=== PATIENT | male | born 1960 | race Caucasian/White ===

== ENCOUNTER → 2016-07-14 | Outpatient (CLI) | payer BC ==
[~2016-07-14] MED LIST: AGGRENOX 25 MG1 EACH PO; ASPIRIN325 PO; ASPIRIN81 M2 PO; AUGMENTIN 875-1 EACH PO; AZITHROMYCIN 2250 MG PO; BYSTOLIC 5 MG5 M1 PO; BYSTOLIC2.5 MG; CEFTIN 250 MG250 MG PO; DIOVAN 80 MG TA80 M1 PO; EFFIENT10 MG PO; LANTUS100 UNIT/M SUBQ; LIPITOR80 MG PO; METFORMIN HCL500 MG PO; NAPROSYN500 MG PO; NIACIN 500 MG500 M1 PO; TESSALON PERLE100 MG PO; TRICOR145 MG PO; VICTOZA 3-0.6 MG/0.1 SQ; ZOLPIDEM TARTRA10 MG PO
== END ==
LOC: NUC 08:03
DX: I25.10 Atherosclerotic heart disease of native coronary artery without angina pectoris (principal)

== ENCOUNTER → 2017-01-30 | Outpatient (CLI) | payer BC ==
--- NOTE | ~2017-01-30 | 2DMMODE ---
[facility] [address] [place] [address] 2 D/M-MODE ECHOCARDIOGRAM Name: AMEYAVINCE TELLES Room #: REG [facility]#: [id number] Admission: 01/30/17 Attend Phys: Arnol Mckeon MD Discharge: Date of : 56 Date of Service: 01/30/17 1138 Report #: [id number] THIS REPORT FOR: //name// APPROVED REPORT Study performed: 01/30/2017 10:49:55 EXAM: Comprehensive 2D, Doppler, and color-flow Echocardiogram Patient Location: Out-Patient Room #: Echo lab Status: routine BSA: 2.17 HR: 73 bpm BP: 126/76 mmHg Other Information Study Quality: Adequate Indications Diabetes CAD Chest Pain Hypertension/HDD 2D Dimensions LVEF(%): 60.09 (>50%) IVSd: 11.47 (7-11mm) LVOT Diam: 20.32 (18-24mm) LVDd: 43.90 mm PWd: 10.83 (7-11mm) Ascending Ao: 30.98 (22-36mm) LVDs: 29.94 (25-40mm) Aortic Root: 29.68 mm IVC: 11.00 mm White's LVEF: 60.09 % Volumes Left Atrial Volume (Systole) Single Plane 4CH: 42.31 mL Single Plane 2CH: 53.52 mL LA ESV Index: 24.00 mL/m2 Aortic Valve AoV Peak Sal.: 1.31 m/s AO Peak Gr.: 6.84 mmHg LVOT Max P.13 mmHg LVOT Max V: 1.02 m/s MICHELLE Vmax: 2.52 cm2 Mitral Valve [facility] [address] [place] [address] 2 D/M-MODE ECHOCARDIOGRAM Name: VINCE HOU Room #: REG [facility]#: [id number] Admission: 01/30/17 Attend Phys: Arnol Mckeon MD Discharge: Date of : 56 Date of Service: 01/30/17 1138 Report #: [id number] E/A Ratio: 1.5 MV Decel. Time: 134.12 ms MV E Max Sal.: 1.01 m/s MV A Sal.: 0.67 m/s MV PHT: 38.90 ms IVRT: 96.89 ms Pulmonary Valve PV Peak Sal.: 0.97 m/s PV Peak Gr.: 3.78 mmHg Pulmonary Vein P Vein S: 0.49 m/s P Vein A: 0.21 m/s P Vein D: 0.37 m/s P Vein A Dur.: 101.5 msec P Vein S/D Ratio: 1.32 Left Ventricle The left ventricle is normal size. There is hypokinesis in the inferior wall. There is normal left ventricular wall thickness. The left ventricular systolic function is normal. The left ventricular ejection fraction is within the normal range. LVEF is 55-60%. Grade II - pseudonormal filling dynamics. Right Ventricle The right ventricle is normal size. The right ventricular systolic function is normal. Atria The left atrium size is normal. The right atrium size is normal. Aortic Valve The aortic valve is normal in structure. No aortic regurgitation is present. There is no aortic valvular stenosis. Mitral Valve The mitral valve is normal in structure. Trace mitral regurgitation. No evidence of mitral valve stenosis. Tricuspid Valve The tricuspid valve is normal in structure. There is no tricuspid valve regurgitation noted. Pulmonic Valve The pulmonary valve is normal in structure. There is no pulmonic valvular regurgitation. [address] [address] 2 D/M-MODE ECHOCARDIOGRAM Name: VINCE HOU Room #: REG CL [facility]#: [id number] Admission: 01/30/17 Attend Phys: Arnol Mckeon MD Discharge: Date of : 56 Date of Service: 01/30/17 1138 Report #: [id number] Great Vessels The aortic root is normal in size. IVC is normal in size and collapses >50% with inspiration. Pericardium There is no pericardial effusion. <Conclusion> The left ventricle is normal size. The left ventricular systolic function is normal. Grade II - pseudonormal filling dynamics. The right ventricle is normal size. The left atrium size is normal. There is no aortic valvular stenosis. Trace mitral regurgitation. <ELECTRONICALLY SIGNED> By: Arnol Mckeon MD 01/30/17 1138 1138 1138 Arnol Mckeon MD /INF
== END ==
LOC: NUC 01-26 10:29 → CV 01-26 10:30 → NUC 01-26 12:00 → CV 09:56
DX: I25.10 Atherosclerotic heart disease of native coronary artery without angina pectoris (principal); I10 Essential (primary) hypertension; E11.9 Type 2 diabetes mellitus without complications

== ENCOUNTER 2017-05-23 21:04 | Inpatient (IN) | payer BC ==
[~2017-05-23] VITALS: Ht 185.4 cm; Wt 94.6 kg
--- NOTE | ~2017-05-23 | CATHLAB ---
[facility] [address] [place] [address] INVASIVE PROCEDURE REPORT Name: VINCE HOU Room #: 213-P DIS IN M.R.#: [id number] Admission: 05/24/17 Attend Phys: Alicia Gunderson Discharge: 05/24/17 Date of : 56 Date of Service: 05/24/17 1643 Report #: [id number] THIS REPORT FOR: //name// APPROVED REPORT Patient Details Patient Status: In-Patient Room #: The patient is a 57 year-old male Event Personnel Arnol Mckeon Center Receptionist, Crispin eMlendez RN, Jefry Recinos Monitor, Milly Arriaza RTR, YI Scrub, Bri De León RN Stallion Manager Procedures Performed Left Heart Cath Coronaries, Bypass Grafts [id number] [facility] Ind[facility] Dyspnea, Unstable angina , Chest pain Risk Factors Hypercholesterolemia, Coronary Artery DiseaseHypertension, Diabetes Previous Procedures/Diagnoses Previous CABGPrevious PCI Procedure Narrative The Right Groin^ was infiltrated with 1% Lidocaine subcutaneous anesthesia. A PINNACLE 4FR Sheath #[id number] sheath was inserted into the RFA^. Coronary angiography was performed using coronary diagnostic catheters. The right coronary system was accessed and visualized with a JR4 catheter. The left coronary system was accessed and visualized with a JL4 catheter. The left ventricle was accessed and visualized with a PIGTAIL catheter. Left ventricular/Aortic Valve gradient assessed via catheter pullback. Left ventriculogram was performed in 30 degree projection. Hemostasis was obtained with manual pressure following sheath removal without any complications. The patient tolerated the procedure well and there were no complications associated with the procedure. There was no hematoma. Intraoperative Conscious Sedation Sedation start time: 9.05 Case end Time: 9.21 [facility] [address] [place] [address] INVASIVE PROCEDURE REPORT Name: AMEYAVINCE WOODSON Room #: 213-P [facility] IN M..#: [id number] Admission: 05/24/17 Attend Phys: Alicia Gunderson Discharge: 05/24/17 Date of : 56 Date of Service: 05/24/17 1643 Report #: [id number] Fentanyl 25.0 mcg Versed 0.5 mg Fluoro Time: 4.14 minutes Dose: 637 mGy Contrast Type and Amount: Omnipaque 100 ml Coronary Angiography The patient's coronary anatomy is co- dominant. [place] Artery Percent Stenosis Left Main: % Prox LAD: 70 % Mid/Distal LAD: % Circumflex: % RCA: 100 % Ramus: % Diagnostic Cath LAD Patent WOODWARD graft with an end-to-side anastomosis to the mid LAD. Diagonal 1 Patent vein graft with an end-to-side anastomosis to the first diagonal artery. Circumflex There is a stent in the proximal segment of the left circumflex artery, with minimal restenosis. OM3 There is a patent vein graft with an end-to-side anastomosis to OM 3. R PDA There is a patent vein graft with an end-to-side anastomosis to the PDA Left Ventriculography The left ventricle is normal in size with decreaseddecreased contractility. The left ventricular ejection fraction is estimated to be 45%. Left ventricular wall motion abnormalities are present. HK of inf.wall. Hemodynamics The aortic pressure is 139/71 mmHg with a mean of 84 mmHg. The left ventricular pressure is 130/2 mmHg with a mean of mmHg. The left ventricular end diastolic pressure is 19 mmHg. There was no gradient across the aortic valve upon pullback. Pullback from the left ventricle to the aorta revealed no gradient across the aortic valve. Conclusion 1. Patent grafts to LAD, first diagonal artery, third obtuse marginal artery and PDA. 2. Patent stent in the proximal segment of the left circumflex artery. [facility] [address] [place] [address] INVASIVE PROCEDURE REPORT Name: VINCE HOU Room #: 213-P [facility] IN M.R.#: [id number] Admission: 05/24/17 Attend Phys: Alicia Gunderson Discharge: 05/24/17 Date of : 56 Date of Service: 05/24/17 1643 Report #: [id number] 3. Mild segmental LV dysfunction. 4. Recommend medical therapy. <ELECTRONICALLY SIGNED> By: Arnol Mckeon MD 05/24/171642 42 42 Arnol Mckeon MD /INF
--- NOTE | ~2017-05-23 | EKG ---
[address] [address] ELECTROCARDIOGRAM REPORT Name: VINCE HOU Room #: 213-P ADM IN M.R.#: [id number] Admission: 05/24/17 Attend Phys: Bartolome Gonzalez MD Discharge: Date of : 56 Report #: [id number] THIS REPORT FOR: //name// [facility] Test Date: 2017-05-24 Test Time: 06:07:42 Pat Name: VINCE HOU Department: Room: 213 P Gender: M Home Care Aide: SHELBY : 1960 Requested By: Yajaira Barrios Order Number: [id number] MD: Fritz Avina Measurements Intervals [place] Rate: 66 P: 37 [place]: 162 QRS: 40 QRSD: 98 T: 187 QT: 406 QTc: 426 Interpretive Statements Sinus rhythm Probable left atrial enlargement Inferoposterior infarct, age indeterminate Abnormal lateral Q waves Compared to ECG 12/25/2015 20:26:29 Electronically Signed On 05-24-2017 8:14:49 CLIENT SERVICES ACCOUNT MANAGER by Fritz Avina [email or web address] <ELECTRONICALLY SIGNED> By: Fritz Avina MD 05/24/17813 6 6 Fritz Avina MD /MALKA
--- NOTE | ~2017-05-23 | EKG ---
[address] [facility] [place] [address] ELECTROCARDIOGRAM REPORT Name: VINCE HOU Room #: 213-P ADM IN M.R.#: [id number] Admission: 05/24/17 Attend Phys: Bartolome Gonzalez MD Discharge: Date of : 56 Report #: [id number] THIS REPORT FOR: //name// [facility] ED Test Date: 2017-05-23 Test Time: 21:42:57 Pat Name: VINCE HOU Department: Room: 213 Gender: M Master Esthetician: LAYLA : 1960 Requested By: Gómez Franco Order Number: [id number] MD: Fritz Avina Measurements Intervals [place] Rate: 68 P: 34 CT: 162 QRS: 32 QRSD: 100 T: 192 QT: 383 QTc: 408 Interpretive Statements Sinus rhythm Probable left atrial enlargement Inferoposterior infarct, age indeterminate Lateral leads are also involved Compared to ECG 12/25/2015 20:26:29 No significant changes Electronically Signed On 05-24-2017 8:12:26 MINT WAFER DEPOSITOR by Fritz Avina [email or web address] <ELECTRONICALLY SIGNED> By: Fritz Avina MD 05/24/17811 41 41 Fritz Avina MD /MALKA
[2017-05-23 21:06] VITALS: BP 143/85
[2017-05-23 23:16] LABS: ABSOLUTE NEUTROPHILS 4.5 thou/uL (1.4-8.2); BASOPHILS 0.5 % (0.0-2.0); EOSINOPHILS 1.3 % (0.0-3.0); HEMATOCRIT 48.7 % (42.0-52.0); HEMOGLOBIN 16.3 gm/dL (14.0-18.0); LYMPHOCYTES 27.9 % (24.0-44.0); MCHC 33.4 g/dL (28.0-37.0); MCV 86.7 fL (80.0-100.0); MONOCYTES 9.3 % (1.0-8.0); PLATELET COUNT 285 thou/uL (150-400); RBC 5.61 mil/uL (4.50-6.00); RDW 13.7 % (10.5-14.5); WBC 7.4 thou/uL (4.0-11.0)
[2017-05-23 23:21] LABS: ANION GAP 10 mmol/L (7-16); BUN 22 mg/dL (7-18); CALCIUM 9.5 mg/dL (8.5-10.1); CHLORIDE 99 mmol/L (98-107); CO2 28 mmol/L (21-32); CREATININE 0.9 mg/dL (0.7-1.3); GLUCOSE 262 mg/dL (74-106); POTASSIUM 3.9 mmol/L (3.5-5.1); SODIUM 137 mmol/L (136-145)
[2017-05-23 23:30] LABS: TROPONIN-I < 0.04 ng/mL (<0.06)
[2017-05-23] MEDS ORDERED: AGGRENOX 25 MG1 EACH PO (23:30)
[2017-05-23] MEDS ORDERED: FISH OIL 1,001000 M2 PO (23:30)
[2017-05-23] MEDS ORDERED: FOLGARD TABLET1 EAC1 PO (23:31)
[2017-05-24] VITALS (12 sets, daily range): BP systolic 120–136; BP diastolic 67–91
[2017-05-24 05:23] LABS: ALBUMIN 3.3 g/dL (3.4-5.0); CALCIUM 8.3 mg/dL (8.5-10.1); CREATININE 0.9 mg/dL (0.7-1.3); PHOSPHORUS 3.2 mg/dL (2.5-4.9)
[2017-05-24 08:15] LABS: CHOLESTEROL 119 mg/dL (<200); HDL CHOLESTEROL 32 mg/dL (>40); LDL CHOLESTEROL 74 mg/dL (<100); TC:HDL 3.7 Ratio (Not establshd); TRIGLYCERIDE 68 mg/dL (<150); VLDL 14 mg/dL (<40)
[2017-05-24] MEDS ORDERED: METFORMIN HCL500 MG PO (12:18)
[2017-05-25 05:12] LABS: GLYCOHEMOGLOBIN (HGB A1C) 11.4 % (4.8-5.6)
== END 2017-05-24 13:10 | disposition home or self-care (01) | DRG 287 ==
LOC: ER 21:04 → EROBS 05-24 00:02 → 2N 05-24 00:02 → ENTRNSPT 05-24 13:04 → EDTRNSPTSTS 05-24 13:05 → 2N 05-24 13:10
PROVIDERS: Internal Medicine; Nurse Practitioner Family; Physician Assistant
PROC: B21FYZZ Fluoroscopy of Other Bypass Graft using Other Contrast (ICD-10-PCS; principal; 2017-05-24)
PROC: 4A023N7 Measurement of Cardiac Sampling and Pressure, Left Heart, Percutaneous Approach (ICD-10-PCS; principal; 2017-05-24)
PROC: B211YZZ Fluoroscopy of Multiple Coronary Arteries using Other Contrast (ICD-10-PCS; principal; 2017-05-24)
DX: I25.10 Atherosclerotic heart disease of native coronary artery without angina pectoris (principal); I10 Essential (primary) hypertension; E78.5 Hyperlipidemia, unspecified; E11.65 Type 2 diabetes mellitus with hyperglycemia; I48.0 Paroxysmal atrial fibrillation; Z60.2 Problems related to living alone; Z79.899 Other long term (current) drug therapy; Z79.82 Long term (current) use of aspirin; Z90.49 Acquired absence of other specified parts of digestive tract; I25.2 Old myocardial infarction; Z95.1 Presence of aortocoronary bypass graft; Z86.73 Personal history of transient ischemic attack (TIA), and cerebral infarction without residual deficits; Z82.49 Family history of ischemic heart disease and other diseases of the circulatory system
CPT/HCPCS: 10081

== ENCOUNTER → 2017-10-23 | Outpatient (CLI) | payer BC ==
[~2017-10-23] MED LIST changes: +FISH OIL 1,001000 M2 PO; +FOLGARD TABLET1 EAC1 PO
--- NOTE | ~2017-10-23 | 2DMMODE ---
[facility] [place] [address] 2 D/M-MODE ECHOCARDIOGRAM Name: AMEYAVINCE Room #: REG [facility]#: [id number] Admission: 10/23/17 Attend Phys: Arnol Mckeon MD Discharge: Date of : 56 Date of Service: 10/23/17 0959 Report #: [id number] THIS REPORT FOR: //name// APPROVED REPORT Study performed: 10/23/2017 09:16:45 EXAM: Comprehensive 2D, Doppler, and color-flow Echocardiogram Patient Location: Out-Patient Status: routine BSA: 2.17 HR: 77 bpm BP: 140/83 mmHg Rhythm: NSR Indications Chest pain. Hx: CABG. stent, DM, HTN, HLP 2D Dimensions RVDd: 43.26 mm LVEF(%): 56.24 (>50%) IVSd: 11.83 (7-11mm) LVOT Diam: 21.55 (18-24mm) LVDd: 44.38 mm PWd: 11.29 (7-11mm) LVDs: 31.41 (25-40mm) Aortic Root: 34.54 mm White's LVEF: 56.24 % Volumes Left Atrial Volume (Systole) Single Plane 4CH: 51.91 mL Single Plane 2CH: 65.16 mL LA ESV Index: 29.00 mL/m2 Aortic Valve AoV Peak Sal.: 1.72 m/s AO Peak Gr.: 11.81 mmHg LVOT Max P.23 mmHg LVOT Max V: 1.52 m/s MICHELLE Vmax: 3.22 cm2 Mitral Valve E/A Ratio: 1.2 MV Decel. Time: 156.34 ms MV E Max Sal.: 1.17 m/s MV A Sal.: 0.97 m/s MV PHT: 45.34 ms [facility] [place] [address] 2 D/M-MODE ECHOCARDIOGRAM Name: AMEYAVINCE TELLES Room #: REG [facility]#: [id number] Admission: 10/23/17 Attend Phys: Arnol Mckeon MD Discharge: Date of : 56 Date of Service: 10/23/17 0959 Report #: [id number] IVRT: 65.74 ms Pulmonary Valve PV Peak Sal.: 1.44 m/s PV Peak Gr.: 8.29 mmHg Pulmonary Vein P Vein S: 0.65 m/s P Vein D: 0.67 m/s P Vein S/D Ratio: 0.97 Tricuspid Valve TR Peak Sal.: 2.59 m/s RAP Estimate: 5.00 mmHg TR Peak Gr.: 26.86 mmHg PA Pressure: 32.00 mmHg Left Ventricle The left ventricle is normal size. There is normal LV segmental wall motion. Mild concentric left ventricular hypertrophy. Left ventricular systolic function is normal. LVEF is 60-65%. Moderate diastolic dysfunction is present (pseudonormal filling). Right Ventricle The right ventricle is normal size. The right ventricular systolic function is normal. Atria The left atrium size is normal. The right atrium size is normal. Aortic Valve The aortic valve is normal in structure. Trace aortic regurgitation. There is no aortic valvular stenosis. Mitral Valve The mitral valve is normal in structure. Mild mitral regurgitation. No evidence of mitral valve stenosis. Tricuspid Valve The tricuspid valve is normal in structure. Trace tricuspid regurgitation. Estimated PAP is 30-35mmHg. Pulmonic Valve Pulmonic valve is not well visualized. Great Vessels The aortic root is normal in size. Ascending aorta is not well [facility] [address] [place] [address] 2 D/M-MODE ECHOCARDIOGRAM Name: VINCE HOU Room #: REG CL [facility]#: [id number] Admission: 10/23/17 Attend Phys: Arnol Mckeon MD Discharge: Date of : 56 Date of Service: 10/23/17 0959 Report #: [id number] visualized. IVC is normal in size and collapses >50% with inspiration. Pericardium There is no pericardial effusion. <Conclusion> The left ventricle is normal size. Mild concentric left ventricular hypertrophy. Left ventricular systolic function is normal. Moderate diastolic dysfunction is present (pseudonormal filling). The right ventricle is normal size. The left atrium size is normal. Trace aortic regurgitation. Mild mitral regurgitation. Trace tricuspid regurgitation. Estimated PAP is 30-35mmHg. <ELECTRONICALLY SIGNED> By: Arnol Mckeon MD 10/23/17958 8 8 Arnol Mckeon MD /INF
== END ==
LOC: CV 07:11
DX: I34.0 Nonrheumatic mitral (valve) insufficiency (principal); E11.9 Type 2 diabetes mellitus without complications; I11.9 Hypertensive heart disease without heart failure; E78.5 Hyperlipidemia, unspecified; Z95.1 Presence of aortocoronary bypass graft

== ENCOUNTER → 2018-05-01 | Outpatient (CLI) | payer OTHER | LOC: NUC 04-30 07:06 | DX: M62.20 Nontraumatic ischemic infarction of muscle, unspecified site (principal); I10 Essential (primary) hypertension ==

== ENCOUNTER 2018-10-01 01:05 | Emergency (ER) | payer OTHER ==
[~2018-10-01] VITALS: Ht 188 cm; Wt 90.7 kg
[2018-10-01 01:07] VITALS: BP 135/87
[2018-10-02] MEDS ORDERED: KEFLEX500 M1 PO (02:34)
[2018-10-02] MEDS ORDERED: BACTRIM DS TAB1 EACH PO (02:34)
[2018-10-02] MEDS ORDERED: NORCO 5-325 TA1 EAC1 PO (02:36)
== END 2018-10-01 02:05 | disposition home or self-care (01) ==
LOC: ER 01:05
DX: L03.012 Cellulitis of left finger (principal); I25.2 Old myocardial infarction; I10 Essential (primary) hypertension; E78.5 Hyperlipidemia, unspecified; E11.9 Type 2 diabetes mellitus without complications; Z95.5 Presence of coronary angioplasty implant and graft; Z79.4 Long term (current) use of insulin; Z79.899 Other long term (current) drug therapy

== ENCOUNTER 2018-10-01 22:39 | Emergency (ER) | payer OTHER ==
[~2018-10-01] VITALS: Ht 188 cm; Wt 90.7 kg
[2018-10-02] MEDS ORDERED: BACTRIM DS TAB1 EACH PO (02:34)
[2018-10-02] MEDS ORDERED: KEFLEX500 M1 PO (02:34)
[2018-10-02] MEDS ORDERED: NORCO 5-325 TA1 EAC1 PO (02:36)
[2018-10-02 02:50] VITALS: BP 127/65
== END 2018-10-02 02:51 | disposition home or self-care (01) ==
LOC: ER 22:39
DX: L03.012 Cellulitis of left finger (principal); I25.2 Old myocardial infarction; I10 Essential (primary) hypertension; E78.5 Hyperlipidemia, unspecified; E11.9 Type 2 diabetes mellitus without complications; Z90.49 Acquired absence of other specified parts of digestive tract; Z79.4 Long term (current) use of insulin; Z79.899 Other long term (current) drug therapy

== ENCOUNTER 2020-12-16 17:21 | Emergency (ER) | payer OTHER ==
[~2020-12-16] VITALS: Ht 188 cm; Wt 86.2 kg
[~2020-12-16 17:21] MED LIST changes: +BACTRIM DS TAB1 EACH PO; +KEFLEX500 M1 PO; +NORCO 5-325 TA1 EAC1 PO
[2020-12-16 18:00] LABS: ABSOLUTE NEUTROPHILS 4.5 thou/uL (1.4-8.2); BASOPHILS 0.6 % (0.0-2.0); EOSINOPHILS 0.6 % (0.0-3.0); HEMATOCRIT 41.6 % (42.0-52.0); HEMOGLOBIN 13.4 gm/dL (14.0-18.0); LYMPHOCYTES 26.1 % (24.0-44.0); MCH 27.6 pg (26.0-34.0); MCHC 32.3 g/dL (28.0-37.0); MCV 85.4 fL (80.0-100.0); MONOCYTES 8.1 % (1.0-8.0); PLATELET COUNT 298 thou/uL (150-400); POLYS 64.6 % (36.0-66.0); RBC 4.86 mil/uL (4.50-6.00); RDW 14.5 % (10.5-14.5)
[2020-12-16 18:08] LABS: CALCIUM 9.2 mg/dL (8.5-10.1); CREATININE 1.2 mg/dL (0.7-1.3); POTASSIUM 4.1 mmol/L (3.5-5.1)
[2020-12-16 18:17] LABS: ALBUMIN 3.5 g/dL (3.4-5.0); TOTAL BILIRUBIN 0.5 mg/dL (0.2-1.0); TOTAL PROTEIN 6.6 g/dL (6.4-8.2)
[2020-12-16 21:14] VITALS: BP 110/51
--- NOTE | 2020-12-17 06:50 | EKG ---
[place] [address] [address] [facility] [place] [address] ELECTROCARDIOGRAM REPORT Name: VINCE HOU [facility] [id number] Admission: 12/16/20 Attend Phys: Discharge: 12/16/20 Date of : 56 Report #: [id number] [facility] ED Test Date: 2020-12-16 Test Time: 17:27:17 Pat Name: VINCE HOU Department: Room: Gender: M Hospital Ward Clerk: MARCELLUS : 1960 Requested By: José Antonio Oro Order Number: [id number] MD: Van Curiel Measurements Intervals [place] Rate: 81 P: [place]: QRS: 33 QRSD: 88 T: 191 QT: 341 QTc: 396 Interpretive Statements Atrial fibrillation Inferoposterior infarct, age indeterminate Abnrm T, consider ischemia, anterolateral lds Baseline wander in lead(s) V1,V4 Compared to ECG 05/24/2017 06:07:42 Possible ischemia now present Sinus rhythm no longer present Q waves no longer present Myocardial infarct finding still present Electronically Signed On 12-17-2020 6:50:10 CDT by Van Curiel [email or web address] <ELECTRONICALLY SIGNED> By: Van Curiel MD, FAC 12/17/20 0650 1727 1727 Van Curiel MD, [facility] /EPI
== END 2020-12-16 21:29 | disposition home or self-care (01) ==
LOC: ER 17:21
PROVIDERS: Student in an Organized Health Care Education/Training Program
DX: I48.91 Unspecified atrial fibrillation (principal); R42 Dizziness and giddiness; I10 Essential (primary) hypertension; E78.5 Hyperlipidemia, unspecified; E11.9 Type 2 diabetes mellitus without complications; Z90.49 Acquired absence of other specified parts of digestive tract; Z79.2 Long term (current) use of antibiotics; Z79.82 Long term (current) use of aspirin; Z79.4 Long term (current) use of insulin; Z79.899 Other long term (current) drug therapy

== ENCOUNTER 2020-12-24 21:27 | Emergency (ER) | payer OTHER ==
[~2020-12-24] VITALS: Ht 188 cm; Wt 86.2 kg
[2020-12-24] MEDS ORDERED: XARELTO20 MG PO (21:38)
[2020-12-24 22:13] LABS: ABSOLUTE NEUTROPHILS 5.5 thou/uL (1.4-8.2); BASOPHILS 0.5 % (0.0-2.0); EOSINOPHILS 0.8 % (0.0-3.0); HEMATOCRIT 40.2 % (42.0-52.0); HEMOGLOBIN 13.3 gm/dL (14.0-18.0); LYMPHOCYTES 25.7 % (24.0-44.0); MCH 28.1 pg (26.0-34.0); MCV 85.3 fL (80.0-100.0); MONOCYTES 6.7 % (1.0-8.0); PLATELET COUNT 300 thou/uL (150-400); POLYS 66.3 % (36.0-66.0); RBC 4.71 mil/uL (4.50-6.00); RDW 14.7 % (10.5-14.5); WBC 8.4 thou/uL (4.0-11.0)
[2020-12-24 22:39] LABS: CALCIUM 9.6 mg/dL (8.5-10.1); CREATININE 1.2 mg/dL (0.7-1.3); POTASSIUM 4.2 mmol/L (3.5-5.1)
[2020-12-24 22:49] LABS: ALBUMIN 3.9 g/dL (3.4-5.0); TOTAL BILIRUBIN 0.4 mg/dL (0.2-1.0); TOTAL PROTEIN 7.3 g/dL (6.4-8.2)
[2020-12-25 01:10] VITALS: BP 132/68
--- NOTE | 2020-12-25 10:22 | EKG ---
[address] [address] ELECTROCARDIOGRAM REPORT Name: VINCE HOU Room #: DEP [facility]#: [id number] Admission: 12/24/20 Attend Phys: Discharge: 12/25/20 Date of : 56 Report #: [id number] [facility] ED Test Date: 2020-12-24 Test Time: 21:30:42 Pat Name: VINCE HOU Department: Room: Gender: M Farrowing Worker: ROBERT : 1960 Requested By: Petra Recinos Order Number: [id number] MD: Van Curiel Measurements Intervals [place] Rate: 75 P: 47 [place]: 159 QRS: 50 QRSD: 98 T: 210 QT: 362 QTc: 405 Interpretive Statements Sinus rhythm Probable left atrial enlargement Inferoposterior infarct, age indeterminate Abnrm T, consider ischemia, anterolateral lds Compared to ECG 12/16/2020 17:27:17 Atrial fibrillation no longer present Myocardial infarct finding still present Possible ischemia still present Electronically Signed On 12-25-2020 10:22:40 CDT by Van Curiel [email or web address] <ELECTRONICALLY SIGNED> By: Van Curiel MD, [facility] 12/25/20 1022 29 29 Van Curiel MD, [facility] /EPI
== END 2020-12-25 01:11 | disposition home or self-care (01) ==
LOC: ER 21:27
PROVIDERS: Physician Assistant
DX: R07.89 Other chest pain (principal); I48.91 Unspecified atrial fibrillation; I10 Essential (primary) hypertension; E78.5 Hyperlipidemia, unspecified; E11.9 Type 2 diabetes mellitus without complications; Z79.4 Long term (current) use of insulin; Z79.891 Long term (current) use of opiate analgesic; Z79.82 Long term (current) use of aspirin; Z79.1 Long term (current) use of non-steroidal anti-inflammatories (NSAID); Z79.899 Other long term (current) drug therapy

== ENCOUNTER → 2021-01-01 | Outpatient (CLI) | payer OTHER ==
[~2021-01-01] MED LIST changes: +XARELTO20 MG PO
== END ==
LOC: SJCVCIMAG 08:05
PROVIDERS: ATTEND Internal Medicine Cardiovascular Disease
DX: I08.0 Rheumatic disorders of both mitral and aortic valves (principal); I11.9 Hypertensive heart disease without heart failure; E78.5 Hyperlipidemia, unspecified; E11.9 Type 2 diabetes mellitus without complications; I25.10 Atherosclerotic heart disease of native coronary artery without angina pectoris; I49.3 Ventricular premature depolarization; Z95.1 Presence of aortocoronary bypass graft; Z86.73 Personal history of transient ischemic attack (TIA), and cerebral infarction without residual deficits; K21.9 Gastro-esophageal reflux disease without esophagitis; Z79.82 Long term (current) use of aspirin; Z79.899 Other long term (current) drug therapy

== ENCOUNTER → 2021-01-07 | Outpatient (CLI) | payer OTHER ==
[~2021-01-07] VITALS: Ht 193 cm; Wt 86.2 kg
[~2021-01-07] MED LIST changes: +DELTA D310 MCG PO
[2021-01-07 10:10] VITALS: BP 131/79
--- NOTE | 2021-01-07 11:50 | EKG ---
[place] [address] [facility] [place] [address] ELECTROCARDIOGRAM REPORT Name: VINCE HOU [facility]: [facility] [id number] Admission: 01/07/21 Attend Phys: Arnol Mckeon MD Discharge: Date of : 56 Report #: [id number] [facility] Test Date: 2021-01-07 Test Time: 10:15:57 Pat Name: VINCE HOU Department: Room: Gender: M Retort Setter: SHIVANI : 1960 Requested By: Arnol Mckeon Order Number: [id number] MD: Van Curiel Measurements Intervals [place] Rate: 75 P: 38 [place]: 175 QRS: 43 QRSD: 93 T: 194 QT: 371 QTc: 415 Interpretive Statements Sinus rhythm Probable left atrial enlargement Abnormal R-wave progression, early transition Inferior infarct, age indeterminate Lateral leads are also involved Compared to ECG 12/24/2020 21:30:42 Possible ischemia no longer present Myocardial infarct finding still present Electronically Signed On 01-07-2021 11:50:00 CDT by Van Curiel [email or web address] <ELECTRONICALLY SIGNED> By: Van Curiel MD, [facility] 01/07/21 1150 1015 1015 Van Curiel MD, [facility] /EPI
--- NOTE | 2021-01-07 13:45 | CATHLAB ---
[facility] [place] [address] INVASIVE PROCEDURE REPORT Name: VINCE HOU Room #: REG [facility]#: [id number] Admission: 01/07/21 Attend Phys: Arnol Mckeon MD Discharge: Date of : 56 Report #: [id number] THIS REPORT FOR: cc: Prosper Guzmán MD, Rene P. MD Park, Jin S. MD ~ APPROVED REPORT Study performed: 01/07/2021 09:55:48 Patient Details Patient Status: Out-Patient Room #: The patient is a 60 year-old male Event Personnel Arnol Mckeon Commissioner Of Officials, Christa Mitchell RTVishnu Monitor, Karen Marinelli Jones, Jessica RN topographic computator Performed Art Access - R femoral artery* Left Heart Cath Coronaries, Bypass Grafts [id number] [facility] Hemostasis with Manual pressure 94747 Initial Mod Sed Same Phys/QHP Gr5y 638066 Mod Sed Same Phys/QHP Ea 391171 Indication Dyspnea, Positive stress test, Chest pain Risk Factors Hypercholesterolemia, Coronary Artery DiseaseHypertension, Diabetes Previous Procedures/Diagnoses Previous CABGPrevious PCI Procedure Narrative The Right Groin^ was infiltrated with 1% Lidocaine subcutaneous anesthesia. A PINNACLE 4FR Sheath #[id number] sheath was inserted into the RFA^. Coronary angiography was performed using coronary diagnostic catheters. The right coronary system was accessed and visualized with a JR4 catheter. The left coronary system was accessed and visualized with a JL4 catheter. The left ventricle was accessed and visualized with a JR4 catheter. Hemostasis was obtained with manual pressure following sheath removal without any complications. The patient tolerated the procedure well and there were no complications associated with the procedure. There was no [facility] [address] [place] [address] INVASIVE PROCEDURE REPORT Name: VINCE HOU Room #: REG [facility]#: [id number] Admission: 01/07/21 Attend Phys: Arnol Mckeon MD Discharge: Date of : 56 Report #: [id number] hematoma. Intraoperative Conscious Sedation Sedation start time: 11:18 Case end Time: 11:53 Fentanyl 50 mcg Versed 1 mg Fluoro Time: 6.60 minutes Dose: DAP 8726.80 cGycm2 1152 mGy Contrast Type and Amount: Visipaque 85 ml Coronary Angiography The patient's coronary anatomy is co- dominant. Diagnostic Cath Left Main The left main artery is a patent vessel, with no flow-limiting lesions. LAD There is a severe occlusion in the proximal LAD. There is a patent WOODWARD graft with an end-to-side anastomosis to the mid LAD. Diagonal 1 There is a patent SVG with an end-to-side anastomosis to the first diagonal artery. Circumflex The left circumflex artery is a codominant vessel, has a patent stent in the proximal segment. There is mild to moderate disease in the mid and distal segments. OM1 There is a small caliber vessel, patent with no flow-limiting lesions. OM2 This is a small to moderate-sized caliber vessel, patent with no flow-limiting lesions. OM3 There is a severe occlusion in the [place] proximal segment. There is a patent graft with an end-to-side anastomosis to OM 3. Right Coronary The RCA is totally occluded in the proximal segment. R PDA There is a patent SVG with an end-to-side anastomosis to the PDA. Left Ventriculography Left Ventriculography was not performed. Ejection Fraction was 55-60% based off patient's Nuclear Cardiac Stress Test. An LVEDP was measured and there is no gradient across the outflow tract. Hemodynamics The aortic pressure is 133/69 mmHg with a mean of 96 mmHg. The left ventricular pressure is 153/12 mmHg with a mean of mmHg. [facility] [address] [place] [address] INVASIVE PROCEDURE REPORT Name: VINCE HOU Room #: REG CL [facility]#: [id number] Admission: 01/07/21 Attend Phys: Arnol Mckeon MD Discharge: Date of : 56 Report #: [id number] ventricular end diastolic pressure is 23 mmHg. Conclusion 1. Severe three-vessel coronary artery disease. 2. There is a patent WOODWARD graft to the mid LAD. 3. There is a patent SVG to the first diagonal artery. 4. There is a patent graft to the third obtuse marginal artery. 5. There is a patent SVG to the PDA. 6. There is a patent stent in the proximal left circumflex artery. 7. There is normal LV systolic function. 8. Recommend guideline directed medical therapy. <ELECTRONICALLY SIGNED> By: Arnol Mckeon MD 01/07/21 1345 1345 1345 Arnol Mckeon MD /INF
== END | disposition home or self-care (01) ==
LOC: CATH 01-06 08:20
PROVIDERS: ATTEND Internal Medicine Cardiovascular Disease
DX: R07.9 Chest pain, unspecified (principal); I25.10 Atherosclerotic heart disease of native coronary artery without angina pectoris; R94.39 Abnormal result of other cardiovascular function study; R06.00 Dyspnea, unspecified; I10 Essential (primary) hypertension; I48.91 Unspecified atrial fibrillation; E78.00 Pure hypercholesterolemia, unspecified; I25.2 Old myocardial infarction; E78.5 Hyperlipidemia, unspecified; E11.9 Type 2 diabetes mellitus without complications; Z95.1 Presence of aortocoronary bypass graft; Z98.890 Other specified postprocedural states; Z79.899 Other long term (current) drug therapy; Z86.73 Personal history of transient ischemic attack (TIA), and cerebral infarction without residual deficits; Z79.4 Long term (current) use of insulin; Z90.49 Acquired absence of other specified parts of digestive tract; Z79.01 Long term (current) use of anticoagulants

== ENCOUNTER 2021-04-20 13:58 | Inpatient (IN) | payer OTHER ==
[~2021-04-20] VITALS: Ht 190.5 cm; Wt 90.7 kg
[2021-04-20 14:19] VITALS: BP 120/73
[2021-04-20 20:03] LABS: ABSOLUTE NEUTROPHILS 2.8 thou/uL (1.4-8.2); BASOPHILS 0.5 % (0.0-2.0); EOSINOPHILS 0.6 % (0.0-3.0); HEMATOCRIT 39.2 % (42.0-52.0); HEMOGLOBIN 12.9 gm/dL (14.0-18.0); LYMPHOCYTES 23.6 % (24.0-44.0); MCH 27.1 pg (26.0-34.0); MCHC 32.9 g/dL (28.0-37.0); MCV 82.3 fL (80.0-100.0); MONOCYTES 12.9 % (1.0-8.0); PLATELET COUNT 223 thou/uL (150-400); POLYS 62.4 % (36.0-66.0); RBC 4.76 mil/uL (4.50-6.00); RDW 13.6 % (10.5-14.5); WBC 4.5 thou/uL (4.0-11.0)
[2021-04-20 20:11] LABS: CALCIUM 8.7 mg/dL (8.5-10.1); CREATININE 0.7 mg/dL (0.7-1.3); POTASSIUM 3.8 mmol/L (3.5-5.1)
[2021-04-20 20:21] LABS: ALBUMIN 3.6 g/dL (3.4-5.0); TOTAL BILIRUBIN 0.4 mg/dL (0.2-1.0); TOTAL PROTEIN 7.1 g/dL (6.4-8.2)
--- NOTE | 2021-04-20 22:47 | NUR ---
PT. AMBULATED TO BATHROOM-REPORTED TIMES ONE VOID
--- NOTE | 2021-04-21 00:12 | NUR ---
REPORT GIVENT O JALIL RN AND PT. PLACED IN ROOM er17
[2021-04-21 02:28] VITALS: BP 140/87
[2021-04-21 07:19] LABS: CALCIUM 8.7 mg/dL (8.5-10.1); CREATININE 0.8 mg/dL (0.7-1.3)
[2021-04-21 09:13] LABS: CHOLESTEROL 116 mg/dL (<200); HDL CHOLESTEROL 30 mg/dL (>40); LDL CHOLESTEROL 69 mg/dL (<100); TC:HDL 3.9 Ratio (Not establshd); TRIGLYCERIDE 88 mg/dL (<150); VLDL 18 mg/dL (<40)
[2021-04-21] MEDS ORDERED: CORTISPORIN OTI10 ML OTIC (11:17)
[2021-04-21 11:22] VITALS: BP 140/87
[2021-04-21 12:11] VITALS: BP 140/87
[2021-04-21 12:26] VITALS: BP 140/87
--- NOTE | 2021-04-22 07:39 | EKG ---
[address] [place] [address] ELECTROCARDIOGRAM REPORT Name: VINCE HOU Room #: 170-17 DIS IN M.R.#: [id number] Admission: 04/20/21 Attend Phys: Shannan Balderas Discharge: 04/21/21 Date of : 56 Report #: [id number] [facility] ED Test Date: 2021-04-20 Test Time: 17:14:03 Pat Name: VINCE HOU Department: Room: 170 Gender: M Ream Cutter: FLOWER : 1960 Requested By: Sandra Watkins Order Number: [id number] MD: Van Curiel Measurements Intervals [place] Rate: 90 P: 55 AR: 156 QRS: 48 QRSD: 92 T: 199 QT: 343 QTc: 420 Interpretive Statements Sinus rhythm Probable inferior infarct, age indeterminate Abnrm T, consider ischemia, anterolateral lds Compared to ECG 01/07/2021 10:15:57 No significant change Electronically Signed On 04-22-2021 7:39:18 SPENT GRAIN DRYER by Van Curiel [email or web address] <ELECTRONICALLY SIGNED> By: Van Curiel MD, [facility] 04/22/21 0739 13 13 Van Curiel MD, [facility] /EPI
== END 2021-04-21 12:30 | disposition home or self-care (01) | DRG 155 ==
LOC: ER 13:58 → EROBS 21:56
PROVIDERS: Nurse Practitioner; Nurse Practitioner Family; ADMIT Hospitalist; ATTEND Hospitalist
DX: H92.01 Otalgia, right ear (principal); D68.51 Activated protein C resistance; R07.89 Other chest pain; I10 Essential (primary) hypertension; I48.0 Paroxysmal atrial fibrillation; I08.0 Rheumatic disorders of both mitral and aortic valves; I25.10 Atherosclerotic heart disease of native coronary artery without angina pectoris; E11.65 Type 2 diabetes mellitus with hyperglycemia; E78.5 Hyperlipidemia, unspecified; Z86.73 Personal history of transient ischemic attack (TIA), and cerebral infarction without residual deficits; Z87.01 Personal history of pneumonia (recurrent); I25.2 Old myocardial infarction; Z95.5 Presence of coronary angioplasty implant and graft; Z90.49 Acquired absence of other specified parts of digestive tract; Z95.1 Presence of aortocoronary bypass graft; Z79.899 Other long term (current) drug therapy; Z79.84 Long term (current) use of oral hypoglycemic drugs; Z79.01 Long term (current) use of anticoagulants